=== PATIENT | male | born 1965 | race Caucasian/White ===

== ENCOUNTER 2018-11-09 05:26 | Inpatient (IN) ==
--- NOTE | 2018-07-27 09:59 | PAT Medication Instructions ---
Medication Instructions Date of Service July 27, 2018 Home Medications Levalbuterol 1 dose INHALATION UD cyproheptadine 4 mg PO DAILY levalbuterol tartrate [Xopenex HFA] 2 inh INHALATION Q6H nabumetone 750 mg PO UD ASK your surgeon for instructions nabumetone 750 mg PO UD DO NOT take the morning of surgery cyproheptadine 4 mg PO DAILY Take morning of surgery With a small sip of water, OTHERWISE NOTHING TO EAT OR DRINK AFTER MIDNIGHT: Levalbuterol 1 dose INHALATION UD levalbuterol tartrate [Xopenex HFA] 2 inh INHALATION Q6H Other Notes If you have any questions please call us at [phone] or [phone] or [phone] or [phone]
--- NOTE | 2018-11-01 11:30 | Anesthesiology Consultation ---
Date of Service November 01, 2018 Assessment & Plan (1) Encounter for pre-operative examination: No height available from retirement records. Obtain height AM DOS. Chart Review Chart Review: Acceptable Risk for Surgery and Patient NOT seen in Pre Admission Testing History Surgery Operation Date: 08/20/18 07:00 Proposed Procedures p Right Total Hip Arthroplasty - Reed Harris MD Operation Date: 11/09/18 07:30 Proposed Procedures p Right Total Hip Arthroplasty - Michael Meneses DO Height/Weight Weight: 115.666 kg Allergies Allergy/AdvReac Type Severity Reaction Status Date / Time Sulfa (Sulfonamide Allergy Unknown "fever flu Verified 07/27/18 09:45 Antibiotics) like symptoms" "SULFA" PER SURGEON Allergy Unknown flu like Uncoded 07/27/18 09:45 symptoms to "sulfa" - specifics not provided Medications Home Medications Medication Instructions Recorded Confirmed Last Taken Levalbuterol 1 dose INHALATION UD 07/27/18 07/27/18 Unknown cyproheptadine 4 mg PO DAILY 07/27/18 07/27/18 Unknown levalbuterol tartrate [Xopenex HFA] 2 inh INHALATION Q6H 07/27/18 07/27/18 Unknown nabumetone 750 mg PO UD 07/27/18 07/27/18 Unknown Past Medical History Medical History Asthma MILD INTERMITTENT Eczema Insomnia Osteoarthritis Past Surgical History Surgical History Surgical history unknown Social History Smoking Status: Unknown if ever smoked Hx Alcohol Use: No substance use type: unknown Testing Laboratory Results 10/19/18 WBC: 6.15 H/H: 15.5/49.3 PLATELETS: 256 SODIUM: 143 POTASSIUM: 4.8 CHLORIDE: 104 CO2: 22 BUN: 14 CREATININE: 0.89 GLUCOSE: 111 PT: 10.7 PTT: 31.3 INR: 1.03 UA: unremarkable A1C: 5.7% Electrocardiogram Date: 10/16/18 Findings: + NSR @ (82) Chest X-Ray Date: 10/16/18 Findings: + NAD
--- NOTE | 2018-11-09 05:30 | History & Physical Report ---
Date of Service November 09, 2018 Assessment & Plan (1) Osteoarthritis of right hip: Schedule right EMPERATRIZ for 11.09.18. All potential risks, benefits, complications, alternatives, and rehab have been discussed with the patient and he wishes to proceed. Plan for return to [facility] [place] at discharge with ASA 81 mg BID x 30 days for DVT prophylaxis. History of Present Illness Chief Complaint: right hip pain Primary Care Provider: [facility] [place] This is a patient who has been treated conservatively for right hip pain and DJD. Conservative management has failed. His pain has worsened and he has had an increase difficulty in ambulation. He is now being set up for surgical treatment. Allergies Allergy/AdvReac Type Severity Reaction Status Date / Time Sulfa (Sulfonamide Allergy Unknown "fever flu Verified 11/05/18 15:46 Antibiotics) like symptoms" "SULFA" PER SURGEON Allergy Unknown flu like Uncoded 11/05/18 15:46 symptoms to "sulfa" - specifics not provided Home Medications Home Medications Medication Instructions Recorded Confirmed Type cyproheptadine 4 mg PO DAILY 07/27/18 11/05/18 History levalbuterol tartrate [Xopenex HFA] 2 inh INHALATION Q6H 07/27/18 11/05/18 History nabumetone 750 mg PO UD 07/27/18 11/05/18 History Past Med/Surg History Medical History Asthma MILD INTERMITTENT Eczema Insomnia Osteoarthritis Surgical History Surgical history unknown Social History 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 Current Living Situation: Other Current Living Situation Comment: [facility] Smoking Status: Unknown if ever smoked Hx Alcohol Use: No Physical Exam Constitutional: well developed and well nourished; no acute distress ENMT: external ear and nose normal, oropharynx normal Neck: trachea midline, no thyromegaly Respiratory: normal respiratory effort, lungs clear to auscultation Cardiovascular: Rate/Rhythm: regular rate and regular rhythm Gastrointestinal (Abdomen): normal bowel sounds, soft, nontender, no hepatosplenomegaly Musculoskeletal: Hip: + limited ROM of hip (right hip, particularly with internal and external rotation), + joint line tenderness (right groin) and + LUIS ALBERTO test positive (right hip); no skin erythema and no ecchymosis Skin: no rashes, warm and dry Neurologic: normal touch/pain/proprioception Psychiatric: A+Ox3, euthymic affect Lymphatic: no cervical or axillary lymphadenopathy
[2018-11-09] MEDS ORDERED: METOCLOPRAMIDE HCL 10 MG TABLET PO SCH (06:00)
[2018-11-09] MEDS ORDERED: ACETAMINOPHEN 500 MG TAB PO SCH (06:00)
[2018-11-09] MEDS ORDERED: FAMOTIDINE 20 MG TAB PO SCH (06:00)
[2018-11-09] MEDS ORDERED: CeleBREX 200 MG CAP PO SCH (06:00)
[2018-11-09] MEDS ORDERED: CEFAZOLIN 2000MG 2,000 MG/15 ML SYR IV SCH (06:00)
[2018-11-09] MEDS ORDERED: LR 500ML BOLUS, THEN 15ML/HR IV SCH (06:00)
[2018-11-09] MEDS ORDERED: GABAPENTIN 900 MG DOSE PO SCH (06:00)
[2018-11-09] MEDS ORDERED: ROPIVACAINE 0.5% HCL/PF 150 MG, BUPIVACAINE 0.5% MPF 30 ML, EPINEPHrine 30MG/30ML (OR U... INFIL SCH (06:00)
[2018-11-09] MEDS ORDERED: dexAMETHasone 4 MG TAB PO SCH (06:00)
[2018-11-09] MEDS ORDERED: BUPIVACAINE 0.5 % 5 MG/1 ML PF 10ML VIAL ONE (06:25)
[2018-11-09] MEDS ORDERED: PROPOFOL IV EMULSION 10 MG/ML 20 ML VIAL IV ONE ×5 (06:47→10:26)
[2018-11-09] MEDS ORDERED: fentaNYL citrate 100 MCG/2 ML VIAL ONE (06:47)
[2018-11-09] MEDS ORDERED: LIDOCAINE HCL 2% 2 ML VIAL/AMP(20MG/ML) INFIL ONE (06:47)
[2018-11-09] MEDS ORDERED: MIDAZOLAM HCL 1 MG/ML 2ML VIAL ONE (06:48)
[2018-11-09] MEDS ORDERED: PHENYLEPHRINE HCL 10 MG/ML VIAL ONE (06:53)
[2018-11-09] MEDS ORDERED: BACITRACIN INJ 50,000 UNIT VIAL ONE (07:14)
[2018-11-09] MEDS ORDERED: ORTHO JOINT ANESTHETIC ONE (07:14)
[2018-11-09] MEDS ORDERED: TRANEXAMIC ACID 1,000 MG in 0.9 % SODIUM CHLORIDE 100 ML IV ONE (07:45)
--- NOTE | 2018-11-09 07:45 | History & Physical Bridge Note ---
Date of Service November 09, 2018 History & Physical Bridge Note I have examined the patient, reviewed the History & Physical and in the interval since the performance of the History & Physical I have noted the following changes of clinical significance: no changes noted
[2018-11-09] MEDS ORDERED: ePHEDrine sulfate 50 MG/ML SYR ONE (09:02)
[2018-11-09] MEDS ORDERED: ePHEDrine sulfate 50 MG/ML AMP IV PRN (09:06)
[2018-11-09] MEDS ORDERED: fentaNYL citrate 100 MCG/2 ML VIAL IV PRN (09:06)
[2018-11-09] MEDS ORDERED: ATROPINE SULFATE 0.1 MG/ML 10ML SYR IV PRN (09:06)
[2018-11-09] MEDS ORDERED: HYDROmorphone INJ 2 MG/ML SYR/VIAL IV PRN (09:06)
[2018-11-09] MEDS ORDERED: PHENYLEPHRINE 100MCG/ML 5ML SYR ONE (09:48)
--- NOTE | 2018-11-09 10:53 | Post Operative Brief Note ---
Immediate Post Op Note v1 Date of Surgery November 09, 2018 Pre & Post Diagnosis Operation Date: 08/20/18 07:00 <No data on this case meets the specified criteria> Operation Date: 11/09/18 07:30 Pre-Op Diagnosis: RIGHT HIP DEGENERATIVE JOINT DISEASE, RIGHT HIP OSTEOARTHRITIS Post-Op Diagnosis: RIGHT HIP DEGENERATIVE JOINT DISEASE, RIGHT HIP OSTEOARTHRITIS Procedure Operation Date: 08/20/18 07:00 <No data on this case meets the specified criteria> Operation Date: 11/09/18 07:30 Actual Procedures p Right Total Hip Arthroplasty-Uncemented [place] Accolade 2, size 5 femur Trident PSL cluster shell size 58 mm, Biolox delta ceramic femoral head 36 mm outer diameter +5 mm neck length with two 6.5 mm bone screws. (Right) - Michael Meneses DO Surgeon Michael Meneses DO Accounts Payable Representative Ryan Guajardo PA-C Estimated Blood Loss 200 Findings Consistent with Post-Op Diagnosis Specimens Bone and tissue right hip Drains Hemovac Drain Anesthesia Type Spinal MAC Complications none Disposition Accompanied Patient To Recovery: No Disposition: Recovery Room
[2018-11-09] MEDS ORDERED: HYDROmorphone INJ 1 MG/ML SYRINGE IV PRN (11:06)
[2018-11-09] MEDS ORDERED: TAMSULOSIN HCL 0.4 MG CAP PO PRN (11:06)
[2018-11-09] MEDS ORDERED: NALOXONE HCL 0.4 MG/1 ML VIAL/CARP IV PRN (11:06)
[2018-11-09] MEDS ORDERED: ALUMINUM/MAGNESIUM SUSP 30 ML UDC PO PRN (11:06)
[2018-11-09] MEDS ORDERED: METOCLOPRAMIDE HCL INJ 5 MG/ML 2 ML VIAL IV PRN (11:06)
[2018-11-09] MEDS ORDERED: BISACODYL 10 MG SUPP PR PRN (11:06)
[2018-11-09] MEDS ORDERED: ONDANSETRON INJ 2 MG/ML 2 ML VIAL IV PRN (11:06)
--- NOTE | 2018-11-09 11:48 | XRay Report ---
XR hip 1V RT w pelvis CLINICAL HISTORY: IN PACU - A/P PELVIS and LATERAL HIP COMPARISON: 06/11/2015 DISCUSSION: Interval placement of a total right hip arthroplasty. Good contact between prosthetic and underlying bone. Pre-existing total left hip arthroplasty in good position. Evidence for unremarkabl e postoperative soft tissue change IMPRESSION: Anatomic alignment posttotal right hip arthroplasty. The above report was generated using voice recognition software. It may contain grammatical, syntax or spelling errors. Electronically signed by: New Gimenez M.D. 11/09/2018 11:47 AM
--- NOTE | 2018-11-09 12:16 | Anesthesiology Progress Note ---
Date of Service November 09, 2018 Anesthesia Post Procedure Vital Signs Vital Signs: Temp Pulse Pulse Resp BP Pulse Ox 11/09/18 12:10 36.6 C 66 15 111/78 99 11/09/18 12:00 36.6 C 72 16 109/79 98 11/09/18 11:50 36.6 C 66 17 114/76 97 11/09/18 11:40 36.6 C 601 H 15 116/74 100 11/09/18 11:30 36.3 C L 61 16 113/69 99 11/09/18 11:20 36.3 C L 65 12 111/63 100 11/09/18 11:10 36.3 C L 73 16 101/67 97 11/09/18 05:48 36.8 C 64 18 137/97 97 Transfer of Care Handoff Completed per policy Notes Mental Status: alert / awake / arousable and participated in evaluation Patient Amnestic to Procedure: Yes Nausea / Vomiting: adequately controlled Pain: adequately controlled Airway Patency, RR, SpO2: stable & adequate BP & HR: stable & adequate Hydration State: stable & adequate Neuraxial Anesthesia: was administered and sensory block is resolving Anesthetic Complications: no major complications apparent
[2018-11-09] MEDS ORDERED: KETOROLAC 30 MG/ML VIAL IV SCH (13:00)
[2018-11-09] MEDS: SODIUM CHLORIDE 0.9% 1000ML 1,000 ML IV SCH ×2 (13:03→23:07)
--- NOTE | 2018-11-09 13:31 | Operative Report ---
DATE OF OPERATION: 11/09/2018 PREOPERATIVE DIAGNOSES: 1. Right hip degenerative joint disease. 2. Right hip osteoarthritis. POSTOPERATIVE DIAGNOSES: 1. Right hip degenerative joint disease. 2. Right hip osteoarthritis. PROCEDURE: Right total hip arthroplasty using a [place] Accolade II size 5 femoral stem with a Biolox delta ceramic femoral head 36 mm in diameter with +5 mm neck length, a Trident PSL cluster acetabular shell 58 mm in diameter and 2 Torx 6.5 mm cancellous bone screws. SURGEON: Michael Meneses DO. TELEPHOTO ENGINEER: Ryan Guajardo PA-C, who was present for patient positioning, sterile prep and drape, management of retractors and instruments. He was present through the critical portions of the case including wound closure, application of sterile dressing and transport of the patient to recovery. ANESTHESIA: Spinal, MAC with local. SPECIMENS: Bone and tissue, right hip. DRAINS: Hemovac x2. COMPLICATIONS: None. BLOOD LOSS: 200 mL. 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 He attempted and failed conservative management including oral anti-inflammatories, use of an assistive device, physician directed home exercises and modification of activities and shoe wear. Radiographs demonstrate complete loss of the articular surface of the right hip with marginal osteophytes, subchondral sclerosis and subchondral cysts. The patient was then scheduled for surgery as indicated. All potential risks, benefits, complications, alternatives, rehab, potential for incomplete relief of symptoms, need for further surgery, DVT, PE, , persistent pain, swelling, scarring, weakness, neurovascular injury, wound complications, hardware failure and bone fracture were discussed with the patient. The patient was decided to proceed with procedure as indicated. PROCEDURE: The patient was taken to the Operating Suite and placed supine on the Operating Room table. After identification of the consent and identification of the proper operative site the patient was sedated. The patient had previously received a spinal epidural anesthetic. The patient was then placed in the left lateral decubitus position with the affected side up and Stulberg positioning device then used to maintain lateral position of the patient. All bony prominences were properly padded and protected. Axillary roll was placed as standard and the leg lengths were determined to be essentially equal and then the right hip was then sterilely prepped and draped in the usual fashion. 10-blade scalpel incision was made laterally over the greater trochanter. The incision was deepened through the subcutaneous tissue and meticulous hemostasis with electrocautery. Further deepening of the wound through the layer of the fascia was performed with electrocautery and iliotibial band was then incised with electrocautery. Next, Charnley retractor was placed bother anteriorly and posteriorly at the level of the gluteus tendon. Next, electrocautery was used to make an incision in the vastus lateralis and then sweep was made toward the anterior aspect of the patient along the course of the femoral neck and head. Abductor split was then completed. The gluteus minimus and capsule were then incised and then soft tissue was dissected anteriorly. Next as the soft tissue was dissected anteriorly the lesser trochanter was clearly identified and hip was dislocated with relative ease. Hypertrophic osteophytes were noted circumferentially. The hip joint was noted to be noticeably tight. Next the sagittal saw was used to resect the proximal portion of the femoral neck and head approximately one fingerbreadth proximal to the lesser trochanter. Head was then removed and next the labrum was excised from the acetabulum with a 27 blade scalpel and long forceps. Next the wound was irrigated with pulsatile lavage and the pulvinar was then excised from the acetabulum. Appropriate retractors were placed anteriorly superiorly and posteriorly. Next initial acetabular reamer was placed 44 mm medialized to the medial wall and then sequential reaming was performed to size 58 mm. Trial cage was then placed and noted to be stable with excellent fit. Next the wound was irrigated with pulsatile lavage with bacitracin additive and 58 mm [place] trident PSL cup was impacted and then two 6.5 mm screws were used to stabilize the acetabular shell. Next X3 poly 36 mm was impacted into the shell. Lap sponge was placed over to protect it. Next, attention was turned toward the proximal femur. Box osteotome was used to resect proximal portion of bone followed by first pass small reamer. Next, sequential broaching was performed up to size 5 and the 5 trial was placed followed by +5 36 mm trial head. Next, it was reduced and had excellent fit and feel with minimal shuck and excellent stability in all planes and range of motion. Leg lengths were restored and next all trial implants were removed. The wound was copiously irrigated with pulsatile lavage and size 5 Accolade TMZF x 132 degree final stem was impacted. Next, Biolox ceramic 36 mm head +0 neck was impacted. The construct was reduced. Range of motion was performed and noted to be completely stable with excellent range of motion, improved to greater degree than prior to surgery. Two 10 [place] single Hemovac drains were placed exiting anterolaterally. Sterile betadine soak was performed for 3 minutes. Wound was irrigated with pulsatile lavage. Next a #5 Fiberwire suture was used to close the capsule and gluteus minimum via two small bone gunnels made with 2.4 mm drill bit in the greater trochanter. After Fiberwire closure was completed and noted to be stable then 10 Malaysian drains were placed followed by closure of the vastus lateralis and the gluteus medius. This was closed with #1 Vicryl sutures. Next, the iliotibial band was closed using interrupted [id number] #1 Vicryl sutures. Next, final irrigation was performed with pulsatile lavage and dermis was closed using buried interrupted 2-0 Vicryl suture. The skin was closed with skin mary. Sterile compressive dressing was applied. The patient was then placed supine and taken to recovery in stable condition. I attest to the content of the Intraoperative Record and any orders documented therein. Any exceptions are noted below. DAHIANA
--- NOTE | 2018-11-09 14:00 | Radiation OncologyConsultation ---
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 Meneses on 11/09/2018. Dr. Meneses did note hypertrophic osteophytes at the time of the procedure and was concerned for the development of heterotopic ossification so a radiation oncology consultation has been re quested. I have not seen the patient in consultation to discuss the role of radiation therapy. Treatment Options: 1. Prophylactic radiation therapy to right hip. 2. Medical management with high-dose NSAIDs. 3. Conservative management with observation. Recommendation: Prophylactic radiation therapy to the right hip to prevent development of heterotopic ossification. Plan: 1. Patient will be brought down today for CT simulation for treatment planning for radiation therapy. We will plan to deliver 1 fraction of radiation therapy today which will complete the course of treatment. 2. Continue all other management as per primary team. Rationale/Explanation of Treatment: We did explain the indications, alternatives, benefits, risks and side effects of external beam radiation therapy. We did explain the most common side effects including, but not limited to, skin erythema, skin breakdown, hyperpigmentation, telangiectasia, wound complications, perianal fistula development, fistula formation, bowel obstruction, bowel perforation, dysuria, increased urinary frequency, urgency, diarrhea, constipation, melena, hematochezia, hematuria, radiation cystitis, radiation proctitis, fatigue, decreased blood counts, wound complications from surgery, rectal incontinence, secondary malignancy development. We did explain the procedures and daily process of radiation therapy. The patient understands and would be willing to consent to treatment. The patient had multiple questions which were answered to his full satisfaction. Thank you for allowing us to participate in the care of this patient. This chart was completed in part utilizing [employer] Speech Voice Recognition software. Attempts were made to minimize the grammatical errors, random word insertions, pronoun errors and incomplete sentences. Any formal questions or concerns about the content, text or information contained within the body of this dictation should be directly addressed to the provider for clarification. 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 His pain is gotten significantly worse and the patient was evaluated by Dr. Meneses who recommended a right total hip arthroplasty. The patient underwent a right total hip arthroplasty on 11/09/2018. At the time of the procedure, hypertrophic osteophytes were noted. Dr. Meneses has recommended prophylactic radiation therapy to prevent development of heterotopic ossification involving the right hip. Currently, the patient is doing relatively well. He has no significant complaints. He states he is well medicated with respect to hip pain. Allergies Allergy/AdvReac Type Severity Reaction Status Date / Time Sulfa (Sulfonamide Allergy Unknown "fever flu Verified 11/09/18 05:40 Antibiotics) like symptoms" "SULFA" PER SURGEON Allergy Unknown flu like Uncoded 11/09/18 05:40 symptoms to "sulfa" - specifics not provided Home Medications Home Medications Medication Instructions Recorded Confirmed Type cyproheptadine 4 mg PO DAILY 07/27/18 11/09/18 History levalbuterol tartrate [Xopenex HFA] 2 inh INHALATION Q6H 07/27/18 11/09/18 History nabumetone 750 mg PO UD 07/27/18 11/09/18 History meloxicam 7.5 mg PO BID 11/09/18 11/09/18 History Patient History Medical History Asthma MILD INTERMITTENT Eczema Insomnia Osteoarthritis Surgical History Surgical history unknown Social History Preferred Language: Ivorian Talent Coordinator Required: No Current Living Situation: Other Current Living Situation Comment: [facility] Smoking Status: Unknown if ever smoked Hx Alcohol Use: No Review of Systems Constitutional: as per Subjective / HPI Musculoskeletal: as per Subjective / HPI Physical Exam Constitutional: WD/WN, vitals as above Musculoskeletal: Status post right total hip arthroplasty. Minimal examination due to surgical bandaging. Results Additional Studies 11/09/18 CT guide rad therapy pelvis Routine 11/09/18 11:07 XR hip 1V RT w pelvis Routine Time Spent Attending This documentation has been prepared in part by, Kelli Shaffer PA-C, acting as a scribe under my direction. I, Tea Welch MD, personally performed the services described and have reviewed the documentation to ensure its accuracy. I spent 35 minutes for this consultation, which included obtaining clinical information, performing a physical exam, recommending a plan of action and answering questions. Greater than 50% of the time spent was direct face to face interaction with the patient.
[2018-11-09] MEDS: KETOROLAC 30 MG/ML VIAL IV SCH ×3 (16:35→23:48)
[2018-11-09] MEDS: ACETAMINOPHEN 500 MG TAB PO SCH ×2 (16:35→21:39)
[2018-11-09] MEDS: LEVALBUTEROL TARTRATE 15 GM HFA.AER.AD INH SCH ×2 (16:36→19:33)
[2018-11-09] MEDS: CEFAZOLIN 2000MG 2,000 MG/15 ML SYR IV SCH ×2 (16:55→23:48)
[2018-11-09] MEDS ORDERED: TRANEXAMIC ACID 1,000 MG in 0.9 % SODIUM CHLORIDE 100 ML IV SCH (17:00)
[2018-11-09] MEDS ORDERED: Nursing to Pharmacy Communication ONE (18:25)
[2018-11-09] MEDS: OXYCODONE HCL IR 5 MG TAB (IMMEDIATE RELEASE) PO PRN ×2 (19:36→23:48)
[2018-11-09] MEDS: ASPIRIN 81 MG ECTAB PO SCH (21:39)
[2018-11-09] MEDS: DOCUSATE SODIUM 100 MG CAP PO SCH (21:39)
[2018-11-09] MEDS: SENNA 8.6 MG TAB PO SCH (21:40)
[2018-11-10] MEDS: LEVALBUTEROL TARTRATE 15 GM HFA.AER.AD INH SCH ×4 (03:02→21:23)
[2018-11-10] MEDS: ACETAMINOPHEN 500 MG TAB PO SCH ×3 (05:46→21:27)
[2018-11-10] MEDS: KETOROLAC 30 MG/ML VIAL IV SCH ×2 (05:46→11:15)
[2018-11-10] MEDS: OXYCODONE HCL IR 5 MG TAB (IMMEDIATE RELEASE) PO PRN ×2 (05:50→11:13)
[2018-11-10 06:07] LABS: Hematocrit (blood only) 35.8 % (42-52); Hemoglobin 12.1 g/dL (14.0-18.0); Immature Granulocytes # (auto) 0.03 K/uL (0.00-0.02); Immature Granulocytes % (auto) 0.2 %; Lymphocytes # (auto) 0.91 K/uL (1.2-3.4); Mean Corpuscular Hgb Conc 33.8 g/dL (32-36); Mean Corpuscular Volume 92.7 fL (80-100); Mean Platelet Volume 9.9 fL (7.4-10.4); Monocytes # (auto) 1.07 K/uL (0.11-0.59); Monocytes % (auto) 7.1 %; Neutrophils # (auto) 13.11 K/uL (1.4-6.5); Neutrophils % (auto) 86.7 %; Platelet Count 222 K/uL (130-400); RDW Coefficient of Variation 12.8 % (11.5-14.5); Red Blood Count 3.86 M/uL (4.7-6.1); White Blood Count 15.12 K/uL (4.8-10.8)
[2018-11-10 06:37] LABS: BUN Creatinine Ratio 18.7 (10-20); Calcium 8.1 mg/dl (8.5-10.1); Creatinine Clr Calc Pharmacy 105.4 ml/min; Est GFR (African American) 91.6; Potassium 4.5 mmol/L (3.5-5.1)
[2018-11-10] MEDS ORDERED: dexAMETHasone 4 MG TAB PO SCH (08:00)
[2018-11-10] MEDS: ASPIRIN 81 MG ECTAB PO SCH ×2 (08:32→21:26)
[2018-11-10] MEDS: DOCUSATE SODIUM 100 MG CAP PO SCH ×2 (08:32→21:27)
[2018-11-10] MEDS: MULTIVITAMIN TAB PO SCH (08:32)
[2018-11-10] MEDS: MAGNESIUM HYDROXIDE SUSP 30 ML UDC PO PRN ×2 (08:46→16:40)
--- NOTE | 2018-11-10 09:12 | Orthopedic Progress Note ---
Date of Service November 10, 2018 Assessment & Plan (1) Osteoarthritis of right hip: POD #1 s/p right EMPERATRIZ PT/OT Pain control DVT prophylaxis--ASA 81 mg BID and TEDs Hemovac will be able to be removed later today--order is in. D/C planning--[facility] probably tomorrow if he continues to improve. Subjective Pain controlled in the right hip. Doing well and getting around well. Denies CP, SOB, LH. Physical Exam Constitutional: well developed and well nourished; no acute distress ENMT: external ear and nose normal, oropharynx normal Neck: trachea midline, no thyromegaly Respiratory: normal respiratory effort, lungs clear to auscultation Cardiovascular: Rate/Rhythm: regular rate and regular rhythm Gastrointestinal (Abdomen): normal bowel sounds, soft, nontender, no hepatosplenomegaly Musculoskeletal: Hip: + surgical incision (right hip: dressing C/D/I.) and + surgical drain present (250 cc total); no skin erythema and no ecchymosis Skin: no rashes, warm and dry Neurologic: normal touch/pain/proprioception Psychiatric: A+Ox3, euthymic affect Lymphatic: no cervical or axillary lymphadenopathy Results & Data Vital Signs (Past 12 Hours) Vital Signs Temp Pulse Resp BP BP Pulse Ox 11/10/18 06:45 36.5 C 75 18 117/70 97 11/10/18 03:06 36.8 C 73 16 102/62 95 11/09/18 23:40 36.5 C 78 16 119/78 94
[2018-11-10] MEDS: CeleBREX 200 MG CAP PO SCH (21:26)
[2018-11-10] MEDS: SENNA 8.6 MG TAB PO SCH (21:27)
[2018-11-11] MEDS: LEVALBUTEROL TARTRATE 15 GM HFA.AER.AD INH SCH ×3 (02:25→14:14)
[2018-11-11] MEDS: ACETAMINOPHEN 500 MG TAB PO SCH ×2 (05:43→14:12)
[2018-11-11] MEDS: ASPIRIN 81 MG ECTAB PO SCH (07:36)
[2018-11-11] MEDS: DOCUSATE SODIUM 100 MG CAP PO SCH (07:36)
[2018-11-11] MEDS: MULTIVITAMIN TAB PO SCH (07:36)
[2018-11-11] MEDS: CeleBREX 200 MG CAP PO SCH (07:37)
[2018-11-11] MEDS: OXYCODONE HCL IR 5 MG TAB (IMMEDIATE RELEASE) PO PRN ×2 (07:55→14:03)
--- NOTE | 2018-11-11 08:17 | Orthopedic Progress Note ---
Date of Service November 11, 2018 Assessment & Plan (1) Osteoarthritis of right hip: POD #2 s/p right EMPERATRIZ PT/OT Pain control DVT prophylaxis--ASA 81 mg BID and TEDs D/C planning--[facility] today. Subjective Pain controlled in the right hip. Doing well and getting around well. Denies CP, SOB, LH. Physical Exam Constitutional: well developed and well nourished; no acute distress ENMT: external ear and nose normal, oropharynx normal Neck: trachea midline, no thyromegaly Respiratory: normal respiratory effort, lungs clear to auscultation Cardiovascular: Rate/Rhythm: regular rate and regular rhythm Gastrointestinal (Abdomen): normal bowel sounds, soft, nontender, no hepatosplenomegaly Musculoskeletal: Hip: + surgical incision (right hip: Silverlon dressing now in place.); no skin erythema, no ecchymosis and no surgical drain present (hemovac was removed yesterday) Skin: no rashes, warm and dry Neurologic: normal touch/pain/proprioception Psychiatric: A+Ox3, euthymic affect Lymphatic: no cervical or axillary lymphadenopathy Results & Data Vital Signs (Past 12 Hours) Vital Signs Temp Pulse Resp BP BP Pulse Ox 11/11/18 06:43 36.8 C 66 18 138/79 93 11/10/18 23:49 36.5 C 73 18 109/70 94
--- NOTE | 2018-11-11 11:48 | Discharge Summary ---
Date of Service November 11, 2018 Admission HPI Per Admitting Provider This is a patient who has been treated conservatively for right hip pain and DJD. Conservative management has failed. His pain has worsened and he has had an increase difficulty in ambulation. He is now being set up for surgical treatment. Principal Diagnosis right hip osteoarthritis Discharge Exam Constitutional well developed and well nourished; no acute distress ENMT external ear and nose normal, oropharynx normal Neck trachea midline, no thyromegaly Respiratory normal respiratory effort, lungs clear to auscultation Cardiovascular Rate/Rhythm: regular rate and regular rhythm Gastrointestinal (Abdomen) normal bowel sounds, soft, nontender, no hepatosplenomegaly Musculoskeletal Hip: + surgical incision (right hip: Silverlon dressing now in place.); no skin erythema, no ecchymosis and no surgical drain present (hemovac was removed yesterday) Skin no rashes, warm and dry Neurologic normal touch/pain/proprioception Psychiatric A+Ox3, euthymic affect Lymphatic no cervical or axillary lymphadenopathy Discharge Data Allergies Allergy/AdvReac Type Severity Reaction Status Date / Time Sulfa (Sulfonamide Allergy Unknown "fever flu Verified 11/09/18 05:40 Antibiotics) like symptoms" "SULFA" PER SURGEON Allergy Unknown flu like Uncoded 11/09/18 05:40 symptoms to "sulfa" - specifics not provided Consultations 11/09/18 11:24 Consult Radiation Oncology Routine 11/10/18 08:00 Consult Case Management - Discharge Planning Routine Procedures Performed Operation Date: 08/20/18 07:00 <No data on this case meets the specified criteria> Operation Date: 11/09/18 07:30 Actual Procedures p Right Total Hip Arthroplasty-Uncemented(Right) - Michael Meneses DO Ordered Studies 11/09/18 CT guide rad therapy pelvis Routine Hospital Course (1) Osteoarthritis of right hip: Patient underwent a right EMPERATRIZ on 11.09.18. He progressed well with pain control and PT throughout POD #1 and POD #2. He was then discharged on POD #2 back to his [facility], [facility]. POD #2 s/p right EMPERATRIZ PT/OT Pain control DVT prophylaxis--ASA 81 mg BID and TEDs D/C planning--[facility] today. Total Time Total Time Spent Total Time Spent (In Minutes): 30 Total Time Includes: Examination of the Patient, Discharge Planning and Medication Reconciliation Discharge Plan Discharge Items [facility]position[facility] Reason For Visit: RIGHT HIP OSTEOARTHRITIS Discharge Diagnosis: right hip osteoarthritis Discharge Goals: Decrease discomfort and Improve function Activity: Per 'Additional Instructions' section Weightbearing: Right weightbearing Weightbearing Comment: as tolerated Non-emergency contact: Surgeon Call non-emergency contact if: your pain is not controlled, your pain is worsening, your temperature is above 101.5 and your wound has increased drainage Follow-up/Referrals: Harrison CHOUDHURY [Primary Care Provider] - Diet: Regular Addtl Provider Instructions: ACTIVITY RECOMMENDATIONS: SELF CARE INSTRUCTIONS AFTER TOTAL HIP REPLACEMENT Until the incision and soft tissues around your hip have healed, there is a possibility that the hip prosthesis could dislocate. A. Observe the following precautions to prevent dislocation: 1. Don't bend your hip greater than 90 degrees. 2. Avoid crossing your legs or ankles while standing or lying. 3. Sit with your feet placed 6 inches apart. 4. When sitting, keep your knees below your hips. Sit on a firm surface, avoid deep, soft chairs and couches. Use an elevated toilet seat in the bathroom. 5. Don't bend over at the waist. Use a long handled shoehorn and a sock aid to help you put on your shoes and socks. A activities volunteer can help you curing pickling packer objects that are too high or too low to reach. 6. Keep car riding to a minimum for at least one month after surgery. B. Your balance may be shaky for a while. Use crutches or a walker until directed by your doctor. C. Use hand rails when walking on stairs. D. Wear low heeled shoes with non-slip soles. E. Be sure that your floors are free of things that could trip you - throw rugs, electrical cords, small objects. Avoid wet and waxed floors, especially with crutches and canes. F. Try to walk several times a day with rest periods between. G. Continue with all the exercises taught to you in the hospital. Again, make walking a part of your daily routine. H. It is okay to shower if minimal to no drainage from incision. No baths. Do not soak wound. I. Physical Therapy as instructed by your Physician. Amanda Argueta: You have a Silverlon dressing on the right knee incision. It will remain in place for 7 days from the day it was put on (day of discharge). After 7 days, you may remove the dressing, just as you would remove a bandaid. You may shower with the Silverlon dressing in place. However, if you notice any water within the dressing, the dressing should be removed. You may cover the incision with a dry dressing once the silverlon is removed if there is any drainage. K. You have a Zipline closure system over your incision. It will remain in place for 14 days after your surgery. If you have a Silverlon dressing or a large bandaid-like silver dressing over your surgical incision, make sure the Zipline under the dressing remains in place after its removal. SPECIAL CARE INSTRUCTIONS: VERY IMPORTANT TO READ AND REVIEW A. You may still be at risk for phlebitis and blood clots. 1. Wear surgical stockings (BERNY hose) for one month, 20 hours daily, after surgery to improve circulation and reduce swelling. 2. Take Aspirin (blood thinning medications), as directed by your doctor. 3. Have a pro-time (blood test) drawn according to your doctor's instructions. B. We encourage and will assist you in choosing a home-health agency of your choice. Home health nurses and therapists will monitor your temperature, wound healing and progress in exercise and walking. Home health nurses may also draw the blood for the pro-time test. They may instruct you in decreasing or increasing the amount of Coumadin you take. C. You must take antibiotics before having dental work, bladder, bowel and other surgery. Your doctor will provide you with a permanent card to carry describing precautions. D. Call [facility] if you have a temperature of 101 or greater, redness or swelling around the incision, cloudy drainage from incision, or sudden increase in pain in your hip, not relieved by your regular pain medication. E. Please call the office at if you have any concerns or questions about your operation or recovery. FOLLOW UP VISIT: If appointment is not already scheduled: Please call [facility] to make a follow-up appointment for 2 weeks after your surgery at . Prescriptions: New aspirin [Ecotrin Low Strength] 81 mg Tablet,Delayed Release (Dr/Ec) 81 mg PO BID Qty: 60 RF: 0 acetaminophen [Tylenol Extra Strength] 500 mg Tablet 1,000 mg PO Q8 Qty: 120 RF: 0 oxycodone 5 mg Tablet 5 - 10 mg PO Q4H PRN (Reason: pain) Qty: 30 RF: 0 Continued nabumetone 750 mg Tablet 750 mg PO UD RF: 0 cyproheptadine 4 mg Tablet 4 mg PO DAILY RF: 0 levalbuterol tartrate [Xopenex HFA] 45 mcg/actuation Hfa Aerosol Inhaler 2 inh INHALATION Q6H RF: 0 meloxicam 7.5 mg Tablet 7.5 mg PO BID RF: 0 Stand-Alone Forms: [facility] Discharge Orders: Discharge Order (Routine); Ordered 11/11/18 Ordered By: Ryan Guajardo Admission Data Admit Date/Time: 11/09/18 11:07 Attending Provider: Michael Meneses Admit Provider: Michael Meneses Primary Care Provider: Harrison CHOUDHURY Other Providers: Freddy Zamudio Service: Surgical Services
== END 2018-11-11 15:57 | DRG 470 ==
LOC: ASU 05:26 → 3E 11:07